=== PATIENT | male | born 1970 | race Caucasian/White ===

== ENCOUNTER → 2020-09-01 14:14 | Outpatient (CLI) | payer MEDICARE, MEDICAID, SELFPAY ==
[2020-09-01 16:13] LABS: Basophils # 0.1 K/mm3 (0-0.2); Basophils % 0.5 % (0.1-2.0); Eosinophils # 0.1 K/mm3 (0.0-0.4); Eosinophils % 0.9 % (0.1-12.0); Hematocrit 50.2 % (42.0-52.0); Hemoglobin 16.7 g/dL (14.1-18.0); Lymphocytes # 2.9 K/mm3 (0.7-4.5); Mean Corpuscular HGB Conc 33.2 g/dL (31.8-35.4); Mean Corpuscular Hemoglobin 30.6 pg (27.0-31.2); Mean Platelet Volume 9.4 fl (7.4-10.4); Monocytes # 0.7 K/mm3 (0.1-1.0); Monocytes % 5.1 % (1.7-9.3); Neutrophils # 10.5 K/mm3 (1.8-7.8); Neutrophils % 73.5 % (37.0-80.0); Platelet Count 343 K/mm3 (142-424); Red Blood Count 5.46 M/mm3 (4.60-6.20); Red Cell Distribution Width 13.9 % (11.5-17.5); White Blood Count 14.3 K/mm3 (4.8-10.8)
[2020-09-01 16:53] LABS: Alanine Aminotransferase 19 U/L (12-78); Albumin Level 4.9 g/dl (3.5-5.0); Albumin/Globulin Ratio 1.8 (1.1-1.8); Alkaline Phosphatase 114 U/L (38-126); Anion Gap 14.1 mEq/L (5-15); Aspartate Amino Transferase 34 U/L (17-59); Bilirubin,Total 0.3 mg/dl (0.2-1.3); Blood Urea Nitrogen 4 mg/dl (9-20); Calcium 9.8 mg/dl (8.4-10.2); Carbon Dioxide 29 mmol/L (22.0-30.0); Chloride 93 mmol/L (98-107); Chol/HDL Ratio 2.8 (1-3.5); Cholesterol 178 mg/dl (140-200); Estimated Glomerular Filt Rate 141 ml/min (>60); GFR (African American) 171 ML/MIN (>60); Globulin 2.8 g/dL (1.3-3.2); Glucose 71 mg/dl (74-100); HDL Cholesterol 64 mg/dl (40-60); Potassium 5.1 mmoL/L (3.5-5.1); Sodium 131 mmol/L (136-145); Total Protein,Serum 7.7 g/dl (6.3-8.2); Triglycerides 156 mg/dl (30-150); VLDL Cholesterol 31 mg/dL (0-40)
[2020-09-01 17:23] LABS: Thyroid Stimulating Hormone 1.44 uIU/mL (0.465-4.68)
[2020-09-09 11:21] LABS: Testosterone, Total, LC/MS 794.6 ng/dL (264.0-916.0); Testosterone,Free 12.4 pg/mL (7.2-24.0)
== END ==
PROVIDERS: Visit Provider Family Medicine
DX: K85.90 Acute pancreatitis without necrosis or infection, unspecified (principal); R53.83 Other fatigue; F10.10 Alcohol abuse, uncomplicated
CPT/HCPCS: 80053; 80061; 84402; 84403; 84443; 85025

== ENCOUNTER → 2021-01-09 13:54 | Outpatient (CLI) | payer MEDICARE, MEDICAID, SELFPAY ==
[2021-01-09 14:14] LABS: Lipase 315 U/L (23-300)
== END ==
PROVIDERS: Visit Provider Family Medicine
DX: K85.90 Acute pancreatitis without necrosis or infection, unspecified (principal); K86.1 Other chronic pancreatitis
CPT/HCPCS: 83690

== ENCOUNTER → 2021-02-20 13:27 | Outpatient (CLI) | payer MEDICARE, MEDICAID, SELFPAY ==
[2021-02-20 13:46] LABS: Lipase 64 U/L (23-300)
[2021-02-20 14:29] LABS: Barbiturates Screen,Urine Negative ng/ml (<200)
[2021-02-20 14:30] LABS: Amphetamine/Metha Screen,Urine Negative ng/ml (<1000)
[2021-02-20 14:31] LABS: Benzodiazepines Screen,Urine Negative ng/ml (<200); Cannabinoid Screen,Urine Negative ng/ml (<50)
[2021-02-20 14:32] LABS: Cocaine Screen,Urine Negative ng/ml (<300); Phencyclidine Screen,Urine Negative ng/ml (<25)
[2021-02-20 14:33] LABS: Methadone Screen,Urine Negative ng/ml (<300)
[2021-02-20 14:34] LABS: Opiate Screen,Urine Negative ng/ml (<300)
== END ==
PROVIDERS: Visit Provider Family Medicine
DX: Z79.899 Other long term (current) drug therapy (principal); K85.90 Acute pancreatitis without necrosis or infection, unspecified
CPT/HCPCS: 80305; 83690

== ENCOUNTER → 2021-07-03 12:59 | Outpatient (CLI) | payer MEDICARE, MEDICAID, SELFPAY ==
[2021-07-03 15:16] LABS: Opiate Screen,Urine Negative ng/ml (<300)
[2021-07-03 15:17] LABS: Phencyclidine Screen,Urine Negative ng/ml (<25)
[2021-07-03 15:36] LABS: Amphetamine/Metha Screen,Urine Negative ng/ml (<1000)
[2021-07-03 15:37] LABS: Barbiturates Screen,Urine Negative ng/ml (<200); Benzodiazepines Screen,Urine Negative ng/ml (<200)
[2021-07-03 15:38] LABS: Cannabinoid Screen,Urine Negative ng/ml (<50); Cocaine Screen,Urine Negative ng/ml (<300)
[2021-07-03 15:39] LABS: Methadone Screen,Urine Negative ng/ml (<300)
== END ==
PROVIDERS: Visit Provider Family Medicine
DX: Z79.899 Other long term (current) drug therapy (principal)
CPT/HCPCS: 80305

== ENCOUNTER → 2021-12-12 11:24 | Outpatient (CLI) | payer MEDICARE, MEDICAID, SELFPAY ==
--- NOTE | 2021-12-12 | CA_ITS ---
APPROVED REPORT Exam: Pharmacologic Technologist: Yee Galeas Ht: 5 ft 8 in Wt: 154 lbs BSA: 1.83 m2 HR: 64 bpm BP: 159/87 mmHg Indications: Dyspnea, Claudication Medical History Medications: Aspirin,,,,, Crestor,,,,, Esomeprazole,,,,, Fluoxetine,,,,, Vitamin B1,,,,, ONdansetron,,,,, Stress Test Details Test: LEXISCAN HR Resting HR: 60 bpm Max Heart Rate (APMHR): 167.588888 bpm Max HR Achieved: 88 bpm Target HR (85% APMHR): 141.523918 bpm % of APMHR: 52.69 Recovery HR: 76 bpm BP Resting BP: 159.0/87.0 mmHg Max BP: 165.0/86.0 mmHg Recovery BP: 150.0/91.0 mmHg ECG Resting ECG: Normal sinus rhythm, LVH, cannot rule out old inferior [place]. Clinical Exercise duration: 04:00 min Highest Stage Achieved: Stress ECG Conclusion Symptoms: Shortness of air, stomach cramps. No chest pain. Arrhythmias/Ectopy: None ST-T Changes: No significant changes. Conclusion: Unremarkable Lexiscan stress. Myoview images reported separately. Electronically signed by : Bentley Desir MD 12/12/2021 19:32:22
--- NOTE | 2021-12-12 11:27 | CA_ITS ---
APPROVED REPORT EXAM: Comprehensive 2D, Doppler, and color-flow Echocardiogram Veneer Gluer: Kristyn Montana, RCS, RVS Ht: 5 ft 8 in Wt: 154lbs BSA: 1.83 BP: 140/78 mmHg Indications: ? OHS FOR UNKNOWN GREAT VESSEL MALFORMATION(PT POOR HISTORIAN) SMOKER, ETOH ABUSE, PVD,ED SOB,SIMPSON 2D Dimensions Aortic Root 3.34 cm Left Atrium 3.32 cm LVOT 1.92 cm (M/F) 1.5-2.5 M-Mode Dimensions RVDd 3.35 cm (0.9-2.6) LA Diam 3.75 cm (1.9-4.0) LVDd 5.10 cm (3.5-5.7) Ao Diam 3.47 cm (2.0-3.7) LVDs 3.43 cm (3.5-5.7) IVSd 0.93 cm (0.6-1.1) PWd 0.86 cm (0.6-1.1) EF (Teich) 60.80% EPSs 0.48 cm FS 32.70% EDV (Teich) 123.80 mL TAPSE 1.74 (<1.7) ESV (Teich) 48.50 mL LV Diastology E Decel Time 323.00 (160-240 msec) E/A Ratio 0.99 MED E' 7.40 (< 7 cm/sec) MED A' 13.20 cm/s E'/MED E' Ratio 7.24 (>14) LAT E' 7.90 (<10 cm/sec) LAT A' 12.40 cm/s E/LAT E' Ratio 6.78 (>14) Aortic Valve LVOT Max 94.00 (70-110 cm/s) LVOT VTI 17.46 cm AoV Peak Jeyson. 117.00 (50-130 cm/s) AO Peak GR. 5.50 mmHg AO Mean GR. 2.80 (<5 mmHg) AO VTI 24.79 (18-25 cm) JAG (VTI) 2.04 (2.5-4.5 cm2) Mitral Valve MV A Velocity 54.00 (40-130 cm/s) E/A Ratio 0.99 MV Decel. Time 323.00 (160-240 ms) MV Mean Gr. 1.10 (<2mmHg) MV PHT 90.00 ms Pulmonary Valve PV Peak Velocity 73.00 (50-150 cm/s) Tricuspid Valve TR P. Velocity 171.00 cm/s RAP Estimate 10.00 mmHg RVSP 21.70 mmHg Left Ventricle Left atrium is mildly enlarged, left ventricle is normal size, mild concentric left ventricular hypertrophy, estimated ejection fraction 50%, there is marked hypokinesis involving distal septum and apical wall. Grade 1 diastolic dysfunction seen without tissue Doppler evidence of raise left atrial pressure. Right Ventricle Right atrium and right ventricle mildly enlarged with normal contractility. Aortic Valve Aortic valve is thickened and calcified without Doppler evidence of aortic stenosis or aortic insufficiency. Mitral Valve Mitral valve is grossly normal, there is trace mitral regurgitation. Tricuspid Valve Tricuspid grossly normal, there is trace tricuspid regurgitation, tricuspid regurgitation jet velocity is inadequate for calculation of the right ventricular systolic pressure. Pulmonic Valve Pulmonic valve is poorly visualized. Great Vessels Aortic root is normal size. Inferior vena cava is normal size with normal inspiratory collapse. Pericardium No significant pericardial effusion noted. Conclusion 1. Mild biatrial enlargement, normal left ventricular size, mild concentric left ventricular hypertrophy, estimated ejection fraction 50% with segmental wall motion abnormality described above, grade 1 diastolic dysfunction seen without tissue Doppler evidence of raise left atrial pressure. 2. Mildly enlarged right ventricle with normal contractility. 3. Trace mitral and tricuspid regurgitation. 4. No significant pericardial effusion 5. Inferior vena cava is normal size with normal inspiratory collapse. Electronically signed by : Bentley Desir MD 12/12/2021 20:44:37
--- NOTE | 2021-12-12 11:34 | NM_ITS ---
APPROVED REPORT Exam: Nuclear Stress Test Indication: short of breath..palpiations..syncope..fatigue Patient Location: Outpatient Stress Tech: Yee Galeas NM Tech:Kaitlin Kumar, ARRT, RT (R)(N) Ht: 5 ft 8 in Wt: 150 lbs HR: 60 bpm BP: 159/87 mmHg BSA: 1.81 m2 BMI: 22.8 History: short of breath..palpiations..syncope..fatigue Procedure: Patient received a 0.4 mg of intravenous Lexiscan, resting heart rate 60 bpm, resting blood pressure 159/87 mmHg, with Lexiscan maximum heart rate achived was 88 bpm which is Less than 85 % of the maximum predicted heart rate and blood pressure was 165/86 mmHg. With Lexiscan, patient denied any complaint of chest pain. Electrocardiogram Resting electrocardiogram showed sinus rhythm, with Lexiscan there is less than 1.[address] segment depression noted from the baseline EKG. The EKG portion of the Lexiscan is nondiagnostic. Cardiac Stress and Resting SPECT Images: Cardiac Stress and Resting SPECT images were obtained using technetium 99m Myoview 31.1 mCi stress and 9.60 mCi at rest. Gated SPECT for analysis of segmental wall motion and calculation of the ejection fraction also done. Prone images were also obtained. Cardiac stress and resting SPECT images show uniform myocardial activity without segmental perfusion abnormality, computer derived ejection fraction is 52% with no regional wall motion abnormality, right ventricle is normal size and contractility. Conclusion: 1. The EKG portion of the Lexiscan is nondiagnostic. 2. No scintigraphic evidence of reversible ischemia seen, computer derived ejection fraction is 52% with no regional wall motion abnormality, right ventricle is normal size and contractility. 3. Normal Lexiscan Myoview study. Electronically signed by : Bentley Desir MD 12/12/2021 19:35:42
--- NOTE | 2021-12-12 13:30 | HMH.ITSHM ---
Current Home Medications as stated by this patient Ayden Holman JR or retail sales representative. []VITAMIN B1 SILDENAFIL ROSUVASTATIN OXYCODONE ONDANSETRON FLUOXETINE ESOMEPRAZOLE ASA
--- NOTE | 2021-12-12 14:52 | US_ITS ---
FINAL REPORT CLINICAL HISTORY: claudication, weak pulse in right foot, right leg pain FINDINGS: ANKLE/BRACHIAL INDICES FINDINGS: Pressure indices are as follows: RIGHT LOWER EXTREMITY: Ankle brachial pressure index: 0.58 Comments: Significantly depressed. LEFT LOWER EXTREMITY: Ankle brachial pressure index: 1.04 Comments: Normal. 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 Reviewed, Interpreted and Dictated by Shemar Plata MD Transcribed by Jarret Olsen Authenticated by Shemar Plata MD on 12/12/2021 04:44:57 PM [facility]
== END ==
PROVIDERS: PCP Family Medicine; Visit Provider Family Medicine
DX: I73.9 Peripheral vascular disease, unspecified (principal); R06.09 Other forms of dyspnea
CPT/HCPCS: 78452; 93017; 93306; 93923; A9502; J2785

== ENCOUNTER → 2022-01-06 11:08 | Outpatient (CLI) | payer MEDICARE, MEDICAID, SELFPAY ==
[2022-01-06 11:26] LABS: Basophils # 0.1 K/mm3 (0-0.2); Basophils % 1.1 % (0.1-2.0); Eosinophils # 0.2 K/mm3 (0.0-0.4); Eosinophils % 1.5 % (0.1-12.0); Hematocrit 43.3 % (42.0-52.0); Hemoglobin 14.9 g/dL (14.1-18.0); Lymphocytes # 2.3 K/mm3 (0.7-4.5); Lymphocytes % 18.7 % (10-50); Mean Corpuscular HGB Conc 34.5 g/dL (31.8-35.4); Mean Corpuscular Hemoglobin 32.3 pg (27.0-31.2); Mean Corpuscular Volume 93.7 fl (80-94); Mean Platelet Volume 7.5 fl (7.4-10.4); Monocytes # 0.6 K/mm3 (0.1-1.0); Neutrophils % 73.7 % (37.0-80.0); Platelet Count 399 K/mm3 (142-424); Red Blood Count 4.62 M/mm3 (4.60-6.20); Red Cell Distribution Width 14.4 % (11.5-17.5); White Blood Count 12.3 K/mm3 (4.8-10.8)
[2022-01-06 12:01] LABS: Anion Gap 13.7 mEq/L (5-15); Blood Urea Nitrogen 4 mg/dl (9-20); Calcium 9.1 mg/dl (8.4-10.2); Carbon Dioxide 22 mmol/L (22.0-30.0); Chloride 99 mmol/L (98-107); Estimated Glomerular Filt Rate 174 ml/min (>60); GFR (African American) 210 ML/MIN (>60); Glucose 108 mg/dl (74-100); Potassium 4.7 mmoL/L (3.5-5.1); Sodium 130 mmol/L (136-145)
== END ==
PROVIDERS: PCP Family Medicine; Visit Provider Physician Assistant
DX: F10.10 Alcohol abuse, uncomplicated (principal); G89.29 Other chronic pain; I73.9 Peripheral vascular disease, unspecified; K86.1 Other chronic pancreatitis; N52.9 Male erectile dysfunction, unspecified; R06.00 Dyspnea, unspecified; R10.9 Unspecified abdominal pain; R68.89 Other general symptoms and signs; Z71.6 Tobacco abuse counseling; Z72.0 Tobacco use; Z01.812 Encounter for preprocedural laboratory examination; Z20.822 Contact with and (suspected) exposure to COVID-19
CPT/HCPCS: 80048; 85025; C9803; U0003; U0005

== ENCOUNTER 2022-01-08 07:48 | Day surgery (SDC) | payer MEDICARE, MEDICAID, SELFPAY ==
[2022-01-08] VITALS (13 sets, daily range): BP systolic 123–186; BP diastolic 77–97; PULSE 55–75; RESP 18–20; TEMP 36.9; O2SAT 92–98; BMI 22.1
--- NOTE | 2022-01-08 07:04 | IR_ITS ---
APPROVED REPORT Patient Location: Outpatient Director Of Business Development: JEOVANNY Giraldo RT (R) PROCEDURES Right radial arterial access Catheter placement in the distal abdominal aorta Distal abdominal aortography Catheter placement in the right external iliac artery Right external iliac artery selective angiogram Angioplasty of the right common iliac artery followed by bare-metal stent deployment to the right common iliac artery INDICATION Occluded right common iliac artery, ELSA 0.58 right leg, Mathews claudication class III-IV Informed consent was obtained prior to the procedure. COMPLICATIONS None Estimated Blood Loss: Less than 10mls TECHNIQUE One percent lidocaine used to anesthetize the right anterior aspect of the wrist. The right radial artery was accessed via the Seldinger technique. A 6 Romanian sheath was placed in the right radial artery. 2.5 mg of verapamil, 800 mcg of nitroglycerin, 1mg Lidocaine and 3000 U Heparin were given through the arterial sheath. A PV multi curve guide catheter was placed under fluoroscopic guidance into the distal abdominal aorta distal abdominal aortography was performed. Following this therapeutic heparin was administered giving a therapeutic ACT and the short sheath was exchanged for a 119 cm Terumo sheath. An advantage wire was used to push through the chronic occlusion followed by an 8 mm x 40 mm balloon. Once the balloon was pushed through the occlusion the wire was removed and angiography was performed. Following this a 300 cm hydrophilic wire was then exchanged and the balloon was inflated at 10 lucille in the right common iliac artery. Following this an 8 mm x 57 mm Med[employer] balloon mounted stent was deployed at 10 lucille reducing the 100% occlusion to 0%. Excellent angiographic results were obtained with wide patency of the right common iliac artery. +2 femoral pulses were present at the end of the procedure with 0 pulses at the beginning of the procedure. In the procedure the apparatus was removed the sheath was removed good hemostasis was achieved using TR banding patient was transferred to postop putting in stable condition ANGIOGRAPHIC RESULTS Distal abdominal aorta is widely patent Left common internal and external iliac arteries are patent Right common iliac artery is ostially occluded and then reconstitutes via collateral network. The right external and internal iliac arteries are patent IMPRESSION Occluded right common iliac artery Successful stenting the right common iliac artery 1% occlusion reduced to 0% with 1 bare-metal balloon mounted stent PLAN 1. Xarelto 2.5 twice daily plus aspirin 81 mg daily 2. LDL less than 55 to be achieved with high intensity statin 3. Risk factor modification 4. Avoidance of tobacco products Electronically signed by : Babatunde Meza MD 01/08/2022 10:46:19
[2022-01-08 11:01] LABS: CATHL Activated Clotting Time 315 SEC (74-125)
[2022-01-08 11:02] LABS: CATHL Activated Clotting Time 352 SEC (74-125)
--- NOTE | 2022-01-08 13:43 | HMH.PHACLD ---
Ayden Holman JR has received discharge medication counseling on the following medications: -LOSARTAN (ON PREVIOUSLY, ASKED WHAT TIME OF DAY TO TAKE, EVENING OR SEPARATE FROM METOPROLOL IF DIZZINESS OCCURS) -ASPIRIN (ON PREVIOSULY, ADVISED ON INCREASED BRUISING/BLEED RISK) -METOPROLOL SUCCINATE (ON PREVIOUSLY, ASKED WHAT TIME OF DAY TO TAKE, EVENING OR SEPARATE FROM LOSARTAN IF DIZZINESS OCCURS) -ROSUVASTATIN (ON PREVIOUSLY, NO QUESTIONS) -XARELTO (BRUISE/BLEED RISK, SIGNS/SYMPTOMS OF BLEEDING IN STOOL,URINE, VOMITING, TAKE TWICE DAILY, IF YOU BUMP HEAD BE SEEN) -PLAVIX (BRUISE/BLEED RISK, WATCH FOR SIGNS/SYMPTOMS OF BLEEDING IN STOOL,URINE, VOMITING, TAKE DAILY, IF YOU BUMP HEAD BE SEEN)
== END 2022-01-08 14:24 | disposition home or self-care (01) ==
LOC: CATHLAB 07:51
PROVIDERS: PCP Family Medicine; Visit Provider Internal Medicine
DX: F10.10 Alcohol abuse, uncomplicated (principal); G89.29 Other chronic pain; I70.211 Atherosclerosis of native arteries of extremities with intermittent claudication, right leg; K86.1 Other chronic pancreatitis; R06.09 Other forms of dyspnea; Z71.6 Tobacco abuse counseling; F17.210 Nicotine dependence, cigarettes, uncomplicated; I77.1 Stricture of artery
CPT/HCPCS: 37221; 75710; 85347; 99152; 99153; C1725; C1769; C1876; J1644; Q9966

== ENCOUNTER → 2022-06-28 10:10 | Outpatient (CLI) | payer MEDICARE, MEDICAID, SELFPAY ==
[2022-06-28 15:27] LABS: Amphetamine/Metha Screen,Urine Negative ng/ml (<1000)
[2022-06-28 15:28] LABS: Barbiturates Screen,Urine Negative ng/ml (<200)
[2022-06-28 15:29] LABS: Benzodiazepines Screen,Urine Negative ng/ml (<200); Cannabinoid Screen,Urine Negative ng/ml (<50)
[2022-06-28 15:32] LABS: Cocaine Screen,Urine Negative ng/ml (<300); Methadone Screen,Urine Negative ng/ml (<300)
[2022-06-28 15:33] LABS: Opiate Screen,Urine Negative ng/ml (<300)
[2022-06-28 15:34] LABS: Phencyclidine Screen,Urine Negative ng/ml (<25)
== END ==
PROVIDERS: PCP Family Medicine; Visit Provider Family Medicine
DX: M25.511 Pain in right shoulder (principal)
CPT/HCPCS: 80305

== ENCOUNTER → 2022-11-06 11:30 | Outpatient (CLI) | payer MEDICARE, MEDICAID, SELFPAY ==
[2022-11-06 17:10] LABS: Amphetamine/Metha Screen,Urine Negative ng/ml (<1000); Barbiturates Screen,Urine Negative ng/ml (<200)
[2022-11-06 17:12] LABS: Benzodiazepines Screen,Urine Negative ng/ml (<200); Cannabinoid Screen,Urine Negative ng/ml (<50)
[2022-11-06 17:13] LABS: Cocaine Screen,Urine Negative ng/ml (<300)
[2022-11-06 17:14] LABS: Methadone Screen,Urine Negative ng/ml (<300); Opiate Screen,Urine Negative ng/ml (<300)
[2022-11-06 17:15] LABS: Phencyclidine Screen,Urine Negative ng/ml (<25)
== END ==
PROVIDERS: PCP Family Medicine; Visit Provider Family Medicine
DX: M54.2 Cervicalgia (principal)
CPT/HCPCS: 80305

== ENCOUNTER → 2023-05-24 08:45 | Outpatient (CLI) | payer MEDICARE, MEDICAID, SELFPAY ==
[2023-05-24 18:23] LABS: Basophils # 0.1 K/mm3 (0-0.2); Basophils % 0.7 % (0.1-2.0); Eosinophils # 0.3 K/mm3 (0.0-0.4); Eosinophils % 3.1 % (0.1-12.0); Hematocrit 46.5 % (42.0-52.0); Hemoglobin 15.1 g/dL (14.1-18.0); Lymphocytes # 3.1 K/mm3 (0.7-4.5); Lymphocytes % 32.4 % (10-50); Mean Corpuscular HGB Conc 32.5 g/dL (31.8-35.4); Mean Corpuscular Hemoglobin 30.8 pg (27.0-31.2); Mean Corpuscular Volume 94.7 fl (80-94); Mean Platelet Volume 9.1 fl (7.4-10.4); Monocytes # 0.6 K/mm3 (0.1-1.0); Monocytes % 6.7 % (1.7-9.3); Neutrophils # 5.5 K/mm3 (1.8-7.8); Neutrophils % 57.2 % (37.0-80.0); Platelet Count 391 K/mm3 (142-424); Red Blood Count 4.91 M/mm3 (4.60-6.20); Red Cell Distribution Width 13.2 % (11.5-17.5); White Blood Count 9.6 K/mm3 (4.8-10.8)
[2023-05-24 18:25] LABS: Amphetamine/Metha Screen,Urine Negative ng/ml (<1000)
[2023-05-24 18:27] LABS: Barbiturates Screen,Urine Negative ng/ml (<200); Benzodiazepines Screen,Urine Negative ng/ml (<200)
[2023-05-24 18:28] LABS: Cannabinoid Screen,Urine Negative ng/ml (<50); Cocaine Screen,Urine Negative ng/ml (<300)
[2023-05-24 18:29] LABS: Methadone Screen,Urine Negative ng/ml (<300)
[2023-05-24 18:30] LABS: Opiate Screen,Urine Negative ng/ml (<300); Phencyclidine Screen,Urine Negative ng/ml (<25)
[2023-05-24 18:34] LABS: Alanine Aminotransferase 25 U/L (12-78); Albumin Level 4.6 g/dl (3.5-5.0); Alkaline Phosphatase 121 U/L (38-126); Amylase 53 U/L (30-110); Aspartate Amino Transferase 34 U/L (17-59); Bilirubin,Direct 0.1 mg/dl (0.0-0.4); Bilirubin,Indirect 0.1 mg/dL (0.0-0.9); Bilirubin,Total 0.2 mg/dl (0.2-1.3); Bilirubin,Unconjugated 0.1 mg/dL (0.0-1.1); Chol/HDL Ratio 3.7 (1-3.5); Cholesterol 195 mg/dl (140-200); HDL Cholesterol 53 mg/dl (40-60); Lipase 40 U/L (23-300); Total Protein,Serum 7.7 g/dl (6.3-8.2); Triglycerides 244 mg/dl (30-150); VLDL Cholesterol 49 mg/dL (0-40)
[2023-05-24 18:46] LABS: Direct LDL Cholesterol 112.14 mg/dL (100-129)
[2023-05-24 19:05] LABS: Prostate Specific Ag Screen 1.1 ng/ml (0.0-4.0); Thyroid Stimulating Hormone 1.61 uIU/mL (0.465-4.68)
[2023-05-24 19:24] LABS: Vitamin B12 508 pg/mL (239-931)
[2023-06-04 01:07] LABS: 1,25 Dihydroxy Vitamin D 46 pg/mL (.); 1,25-Dihydroxy, Vitamin D-2 <10 pg/mL (.); 1,25-Dihydroxy, Vitamin D-3 42 pg/mL (.)
== END ==
PROVIDERS: PCP Family Medicine; Visit Provider Family Medicine
DX: K86.0 Alcohol-induced chronic pancreatitis (principal); Z00.00 Encounter for general adult medical examination without abnormal findings; K85.90 Acute pancreatitis without necrosis or infection, unspecified; Z12.5 Encounter for screening for malignant neoplasm of prostate; Z79.899 Other long term (current) drug therapy; Z68.24 Body mass index [BMI] 24.0-24.9, adult; Z72.0 Tobacco use; F10.10 Alcohol abuse, uncomplicated
CPT/HCPCS: 80061; 80076; 80305; 82150; 82607; 82652; 83690; 84443; 85025; G0103

== ENCOUNTER → 2023-07-24 23:00 | Outpatient (CLI) | payer MEDICARE, MEDICAID, SELFPAY ==
[2023-07-24 20:51] LABS: Barbiturates Screen,Urine Negative ng/ml (<200); Benzodiazepines Screen,Urine Negative ng/ml (<200)
[2023-07-24 20:52] LABS: Amphetamine/Metha Screen,Urine Negative ng/ml (<1000)
[2023-07-24 20:53] LABS: Cannabinoid Screen,Urine Negative ng/ml (<50); Methadone Screen,Urine Negative ng/ml (<300)
[2023-07-24 20:54] LABS: Cocaine Screen,Urine Negative ng/ml (<300)
[2023-07-24 20:55] LABS: Opiate Screen,Urine Negative ng/ml (<300)
[2023-07-24 20:56] LABS: Phencyclidine Screen,Urine Negative ng/ml (<25)
== END ==
PROVIDERS: PCP Family Medicine; Visit Provider Family Medicine
DX: Z79.899 Other long term (current) drug therapy (principal)
CPT/HCPCS: 80305

== ENCOUNTER 2023-09-20 22:55 | Outpatient (CLI) | payer MEDICARE, MEDICAID, SELFPAY ==
[2023-09-20 18:53] LABS: Phencyclidine Screen,Urine Negative ng/ml (<25)
[2023-09-20 18:56] LABS: Amphetamine/Metha Screen,Urine Negative ng/ml (<1000)
[2023-09-20 18:58] LABS: Barbiturates Screen,Urine Negative ng/ml (<200)
[2023-09-20 18:59] LABS: Benzodiazepines Screen,Urine Negative ng/ml (<200)
[2023-09-20 19:00] LABS: Cannabinoid Screen,Urine Negative ng/ml (<50); Cocaine Screen,Urine Negative ng/ml (<300)
[2023-09-20 19:01] LABS: Methadone Screen,Urine Negative ng/ml (<300); Opiate Screen,Urine Negative ng/ml (<300)
[2023-09-25 12:02] LABS: Opiates Negative ng/mL (Cutoff=100); Oxycodone Positive (.); Oxycodone Confirm 711 ng/mL (Cutoff=100); Oxymorphone Negative (Cutoff=100)
== END 2023-09-20 23:59 ==
LOC: LAB.DROPOF 22:55
PROVIDERS: PCP Family Medicine; Visit Provider Family Medicine
DX: Z79.899 Other long term (current) drug therapy (principal); G89.29 Other chronic pain; R10.9 Unspecified abdominal pain
CPT/HCPCS: 80307; 80361; 80365; G0480

== ENCOUNTER 2024-01-17 11:49 | Outpatient (CLI) | payer MEDICARE, MEDICAID, SELFPAY ==
[2024-01-17 18:16] LABS: Basophils # 0.1 K/mm3 (0-0.2); Basophils % 0.9 % (0.1-2.0); Eosinophils # 0.3 K/mm3 (0.0-0.4); Eosinophils % 2.4 % (0.1-12.0); Hematocrit 46.5 % (42.0-52.0); Hemoglobin 15.3 g/dL (14.1-18.0); Lymphocytes # 3.8 K/mm3 (0.7-4.5); Lymphocytes % 31.9 % (10-50); Mean Corpuscular HGB Conc 32.8 g/dL (31.8-35.4); Mean Corpuscular Hemoglobin 30.8 pg (27.0-31.2); Mean Corpuscular Volume 93.8 fl (80-94); Monocytes # 0.7 K/mm3 (0.1-1.0); Monocytes % 5.9 % (1.7-9.3); Neutrophils # 6.9 K/mm3 (1.8-7.8); Neutrophils % 58.9 % (37.0-80.0); Platelet Count 291 K/mm3 (142-424); Red Blood Count 4.96 M/mm3 (4.60-6.20); Red Cell Distribution Width 13.6 % (11.5-17.5); White Blood Count 11.8 K/mm3 (4.8-10.8)
[2024-01-17 18:23] LABS: Alanine Aminotransferase 35 U/L (12-78); Albumin Level 4.4 g/dl (3.5-5.0); Albumin/Globulin Ratio 1.6 (1.1-1.8); Alkaline Phosphatase 95 U/L (38-126); Anion Gap 13.2 mEq/L (5-15); Aspartate Amino Transferase 47 U/L (17-59); Bilirubin,Total 0.3 mg/dl (0.2-1.3); Blood Urea Nitrogen 4 mg/dl (9-20); Calcium 9.4 mg/dl (8.4-10.2); Carbon Dioxide 26 mmol/L (22.0-30.0); Chloride 95 mmol/L (98-107); Chol/HDL Ratio 2.7 (1-3.5); Cholesterol 203 mg/dl (140-200); Estimated Glomerular Filt Rate 140 ml/min (>60); GFR (African American) 169 ML/MIN (>60); Globulin 2.8 g/dL (1.3-3.2); Glucose 98 mg/dl (74-100); HDL Cholesterol 75 mg/dl (40-60); Lipase 59 U/L (23-300); Potassium 4.2 mmoL/L (3.5-5.1); Sodium 130 mmol/L (136-145); Total Protein,Serum 7.2 g/dl (6.3-8.2); Triglycerides 218 mg/dl (30-150); VLDL Cholesterol 44 mg/dL (0-40)
== END 2024-01-17 23:59 | disposition home or self-care (01) ==
LOC: LAB.DROPOF 01-18 11:51
PROVIDERS: PCP Family Medicine; Visit Provider Family Medicine
DX: I10 Essential (primary) hypertension (principal); Z79.899 Other long term (current) drug therapy
CPT/HCPCS: 80053; 80061; 83690; 85025

== ENCOUNTER 2024-01-30 12:43 | Outpatient (CLI) | payer MEDICARE, SELFPAY ==
--- NOTE | 2024-01-30 12:44 | MR_ITS ---
FINAL REPORT CLINICAL HISTORY: r/o Stroke COMPARISON: None FINDINGS: Multiplanar MR imaging of the brain was performed without and with contrast. There is mild age-appropriate atrophy. Scattered foci of increased T2 signal are seen in the cerebral white matter that have a nonspecific appearance but likely represent mild chronic ischemic/gliotic changes. There are several chronic periventricular lacunar infarcts noted. There is no evidence of intracranial hemorrhage or mass. No abnormal ventricular dilatation is identified. There is no evidence of shift of the midline structures. No abnormal extra-axial fluid collection is seen. No area of abnormal restricted diffusion is identified. The posterior fossa and brainstem have an unremarkable appearance. No abnormal contrast enhancement is seen. Normal major vessel vascular flow voids are seen. There is soft tissue thickening present in the ethmoid and bilateral maxillary sinuses. IMPRESSION: Mild atrophy and chronic ischemic/gliotic changes, with several chronic periventricular lacunar infarcts.. No acute intracranial abnormality. Ethmoid and bilateral maxillary sinus soft tissue thickening. Reviewed, Interpreted and Dictated by Ramiro Titus III, MD Transcribed by Alexandra Palencia Authenticated and [facility]
--- NOTE | 2024-01-30 13:02 | CA_ITS ---
FINAL REPORT TECHNIQUE: Color Doppler, duplex Doppler and christensen scale sonography of the bilateral neck arterial vasculature was performed. Velocities were measured in the carotid arteries. Stenosis evaluation based on the validated velocity criteria. CLINICAL HISTORY: Stroke,SMOKER,HTN COMPARISON: None FINDINGS: The peak systolic velocity of the right common carotid artery is 73 cm/s. The peak systolic velocity of the right internal carotid artery is 52 cm/s and end diastolic velocity 23 cm/s. The ICA/CCA ratio is 1.69. A mild amount of plaque is present. The right external carotid artery is patent. The right vertebral artery is patent with antegrade flow. The peak systolic velocity of the left common carotid artery is 92 cm/s. The peak systolic velocity of the left internal carotid artery is 60 cm/s and end diastolic velocity 25 cm/s. The ICA/CCA ratio is 0.65. A mild amount of plaque is present. The left external carotid artery is patent.The left vertebral artery is patent with antegrade flow. IMPRESSION: Less than 50% bilateral carotid stenoses. Bilateral patent vertebral arteries with antegrade flow. If indicated, CTA or MRA could further evaluate. Reviewed, Interpreted and Dictated by Ramiro Titus III, MD Transcribed by Malu Ghosh Authenticated and [facility]
[2024-01-30] MEDS: SODIUM CHLORIDE 0.9% 10ML SYR (RAD ONLY) 10 ML IV (13:59)
[2024-01-30] MEDS: GADOTERIDOL INJ 10ML SYRINGE 15 ML IV (13:59)
== END 2024-01-30 23:59 | disposition home or self-care (01) ==
PROVIDERS: PCP Family Medicine; Visit Provider Family Medicine
DX: I10 Essential (primary) hypertension (principal); G45.1 Carotid artery syndrome (hemispheric); F17.210 Nicotine dependence, cigarettes, uncomplicated
CPT/HCPCS: 70553; 93880; A9576

== ENCOUNTER 2025-01-08 14:32 | Outpatient (CLI) | payer MEDICARE, SELFPAY ==
[2025-01-08 17:57] LABS: Basophils # 0.1 K/mm3 (0-0.2); Basophils % 0.6 % (0.1-2.0); Eosinophils # 0.2 Kmm3 (0.0-0.4); Eosinophils % 1.6 % (0.1-12.0); Hematocrit 41.9 % (42.0-52.0); Hemoglobin 13.8 g/dL (14.1-18.0); Immature Granulocytes # 0.08 10^3uL; Immature Granulocytes % 0.6 %; Lymphocytes # 3.4 K/mm3 (0.7-4.5); Lymphocytes % 25.9 % (10-50); Mean Corpuscular HGB Conc 32.9 g/dL (31.8-35.4); Mean Corpuscular Hemoglobin 29.4 pg (27.0-31.2); Mean Corpuscular Volume 89.3 fl (80-94); Mean Platelet Volume 10.2 fl (7.4-10.4); Monocytes % 7.8 % (1.7-9.3); Neutrophils # 8.3 K/mm3 (1.8-7.8); Neutrophils % 63.5 % (37.0-80.0); Nucleated Red Blood Cells # 0 10^3/uL; Nucleated Red Blood Cells % 0 %; Platelet Count 339 K/mm3 (142-424); Red Blood Count 4.69 M/mm3 (4.60-6.20); Red Cell Distribution Width 13.2 % (11.5-17.5)
[2025-01-08 18:24] LABS: Alanine Aminotransferase 24 U/L (12-78); Albumin Level 4.5 g/dl (3.5-5.0); Albumin/Globulin Ratio 1.7 (1.1-1.8); Alkaline Phosphatase 94 U/L (38-126); Anion Gap 11.6 mEq/L (5-15); Aspartate Amino Transferase 29 U/L (17-59); Bilirubin,Total 0.3 mg/dl (0.2-1.3); Blood Urea Nitrogen 5 mg/dl (9-20); Carbon Dioxide 24 mmol/L (22.0-30.0); Chloride 96 mmol/L (98-107); Chol/HDL Ratio 3.6 (1-3.5); Cholesterol 193 mg/dl (140-200); Estimated Glomerular Filt Rate 139 ml/min (>60); GFR (African American) 169 ML/MIN (>60); Globulin 2.6 g/dL (1.3-3.2); Glucose 89 mg/dl (74-100); HDL Cholesterol 54 mg/dl (40-60); Lipase 42 U/L (23-300); Potassium 4.6 mmoL/L (3.5-5.1); Sodium 127 mmol/L (136-145); Total Protein,Serum 7.1 g/dl (6.3-8.2); Triglycerides 319 mg/dl (30-150); VLDL Cholesterol 64 mg/dL (0-40)
[2025-01-08 18:36] LABS: Direct LDL Cholesterol 115.76 mg/dL (100-129)
[2025-01-08 18:53] LABS: Prostate Specific Ag Screen 0.8 ng/ml (0.0-4.0)
== END 2025-01-08 23:59 | disposition home or self-care (01) ==
LOC: LAB.DROPOF 01-12 11:09
PROVIDERS: PCP Family Medicine; Visit Provider Family Medicine
DX: Z12.5 Encounter for screening for malignant neoplasm of prostate (principal); R10.9 Unspecified abdominal pain; G89.29 Other chronic pain; I73.9 Peripheral vascular disease, unspecified
CPT/HCPCS: 80053; 80061; 83690; 85025; G0103